=== PATIENT | female | born 1970 | race Caucasian/White ===

== ENCOUNTER 2017-03-28 17:25 | Inpatient (IN) ==
[2017-03-28 18:42] LABS: Basophils % 0.4 %; Eosinophils # 0.2 K/mcL (0.0-0.6); Eosinophils % 2.1 %; Hemoglobin 12.3 g/dL (11.5-15.4); Immature Granulocytes % 0.8 % (0-4); Lymphocytes # 2.1 K/mcL (0.6-4.6); Mean Corpuscular HGB Conc 34.2 g/dL (31.6-35.5); Mean Corpuscular Hemoglobin 28.1 pg (28.0-33.3); Mean Corpuscular Volume 82.4 fL (83.0-100.0); Mean Platelet Volume 11.3 fL (9.4-12.4); Monocytes # 0.7 K/mcL (0.0-1.3); Monocytes % 8.9 %; Neutrophils # 4.7 K/mcL (1.6-8.9); Platelet Count 184 K/mcL (140-400); Red Blood Count 4.37 M/mcL (3.82-4.97); Red Cell Distribution Width 13.2 % (11.5-14.5); Segmented Neutrophils % 60.8 %
[2017-03-28 18:58] LABS: BUN/Creatinine Ratio 11 (6-26); Blood Urea Nitrogen 9 mg/dL (7-20); Calcium 9.2 mg/dL (8.6-10.8); Carbon Dioxide 25 mEq/L (19-29); Chloride 103 mEq/L (98-109); Glucose 106 mg/dL (70-99); Magnesium 1.7 mg/dL (1.6-2.6); Osmolality,Calculated 277 (280-300); Phosphorous 3.4 mg/dL (2.3-4.7); Sodium 134 mEq/L (136-145); eGFR For African Americans > 60 (> 60); eGFR For Non-African Americans > 60 (> 60)
[2017-03-28] MEDS ORDERED: 0.9 % Sodium Chloride 1,000 ML IVC ONE (19:34)
[2017-03-28] MEDS ORDERED: *HR* HYDROmorphone (PF) 1 MG/ML SYRINGE IVP ONE (19:36)
--- NOTE | 2017-03-28 20:04 | Emergency Department Note ---
Disposition Clinical Impression: Cellulitis Qualifiers: Site of cellulitis: extremity Site of cellulitis of extremity: lower extremity Laterality: left Qualified Code(s): L03.116 - Cellulitis of left lower limb Disposition: Admitted As Inpatient Condition: Good Referrals: NO,PCP [Non-Partnered Physician] - Forms: ED Satisfaction Letter Time of Disposition: 20:55 General Adult HPI - General Chief complaint: ED Skin/Abscess/Foreign Body Stated complaint: post op poss infection left knee Time Seen by Provider: 03/28/17 17:44 Source: patient Mode of arrival: ambulatory Limitations: no limitations Nursing Notes Reviewed: Yes Vital Signs Reviewed: Yes - History of Present Illness HPI Narrative: Patient is a 46-year-old female that presents the emergency department with left knee pain. She states that she had a left knee scope on March 15 and her sutures were removed on March 22 and that is when she noticed a small spot of redness. She states that there has been increased erythema and swelling over the past couple of days. She states that yesterday she got up and it was difficult to walk and that her knee joint felt stuck. She went in to see Dr. Abreu and states that she had a needle aspiration of the left knee which only showed blood was not sent off for analysis. She states that today she went in to have a Doppler of her left leg which she reports to be negative for any sort of blood clot. Patient states that the pain is about a 10 out of 10 and feels like someone has hit her with a sledge hammer in the knee. She was prescribed ibuprofen, [place], and Bactrim which she has taken 3 doses of. Patient says that she has been having fever and chills. She denies any chest pain, shortness of breath, abdominal pain, or any urinary symptoms. Pain Scale: 10 - Related Data Home Medications Medication Instructions Recorded Confirmed Bupropion HCl [Wellbutrin Xl] 300 mg PO DAILY 03/15/17 03/15/17 Divalproex (24 HR) [Depakote ER 250 mg PO TID 03/15/17 03/15/17 (24 HR)] Estrogens, Conjugated [Premarin] 0.9 mg PO DAILY 03/15/17 03/15/17 FLUoxetine HCl [Fluoxetine HCl] 40 mg PO BID 03/15/17 03/15/17 HYDROcodone/Acet 5/325 mg [[place] 1 tab PO Q6H PRN 03/15/17 03/15/17 5-325 mg] Lansoprazole [Prevacid] 30 mg PO DAILY 03/15/17 03/15/17 Lisinopril [Zestril] 20 mg PO DAILY 03/15/17 03/15/17 Tizanidine HCl 4 mg PO Q8H PRN 03/15/17 03/15/17 hydrOXYzine pamoate [Hydroxyzine 25 mg PO Q4-6H PRN 03/15/17 03/15/17 Pamoate] Previous Rx's Medication Instructions Recorded Butalb/Acetaminophen/Caffeine 1 each PO Q4-6H PRN #12 capsule 06/02/15 [Fioricet 50-300-40 mg Capsule] Clindamycin [Cleocin] 150 mg PO Q6HR #7 capsule 03/15/17 Ibuprofen [Motrin] 800 mg PO Q8HR #30 tablet 03/15/17 Allergies Allergy/AdvReac Type Severity Reaction Status Date / Time morphine AdvReac Vomiting Verified 03/15/17 10:25 sumatriptan [From Imitrex] AdvReac Difficulty Verified 03/15/17 10:25 Breathing All systems ED: reviewed and negative except as stated. Constitutional: Reports: fever, chills Cardiovascular: Denies: chest pain Respiratory: Denies: dyspnea Gastrointestinal: Denies: abdominal pain, nausea, vomiting Genitourinary: Denies: dysuria Musculoskeletal: Reports: joint swelling, other (swelling in left lower extremity) Integumentary: Reports: other (Redness of left lower extremity) Past Medical History - Past Medical History Attestation: Yes The following information was validated with the patient. Medical history: Reports: GERD, hypertension, migraine Surgical history: Reports: , hysterectomy, orthopedic, other, other Psychiatric history: Reports: bipolar, depression TALENT SCOUT history: Reports: other - Social History Smoking Status: Current every day smoker Smokeless Tobacco Status: No Alcohol use: Reports: none Drug use: Reports: none Physical Exam - General Limitations: no limitations General appearance: alert - Head Head exam: atraumatic, normocephalic - Neck Neck exam: Present: normal inspection, full ROM, trachea midline - Chest Chest inspection: Present: symmetric chest wall rise - Respiratory Respiratory exam: Present: normal lung sounds bilaterally, respiratory distress. Absent: wheezes - Cardiovascular Cardiovascular exam: Present: regular rate, normal rhythm, normal heart sounds, +S1, +S2 - Abdominal Exam Abdominal exam: Present: soft, Non-Tender, normal bowel sounds - Expanded Lower Extremity Exam Knee exam: Present: tenderness (Left leg), swelling, erythema, other (Pain with flexion, only able to flex about 15 degrees) Lower leg exam: Present: tenderness (Left leg), swelling, erythema - Neurological Exam Neurological exam: Present: alert, oriented X3, CN II-XII intact - Psychiatric Psychiatric exam: Present: normal affect, normal mood - Skin Skin exam: Present: warm, dry, intact, erythema Course Vital Signs Temperature 99.9 F H 03/28/17 17:37 Pulse Rate 104 03/28/17 17:37 Respiratory Rate 20 03/28/17 17:37 Blood Pressure 144/72 03/28/17 17:37 O2 Sat by Pulse Oximetry 96 03/28/17 17:37 Temperature 99.9 F H 03/28/17 17:37 Pulse Rate 104 03/28/17 17:37 Respiratory Rate 20 03/28/17 17:37 Blood Pressure 144/72 03/28/17 17:37 O2 Sat by Pulse Oximetry 96 03/28/17 17:37 Oxygen Delivery Oxygen Delivery Room Air Medical Decision Making - MDM Narrative Medical decision making narrative: The patient is a 46-year-old female that presents to the emergency department with left knee pain and erythema. His last visit she had a left knee scope. Patient states that yesterday she had a knee tap which just showed blood in it. She also reports that today she called and talked with Dr. Abreu and then went and had a Doppler of her left leg which was reported to her as negative for blood clot. After talking with Dr. Abreu further he recommended that she come to the emergency department. Patient has been on Bactrim and has taken 3 doses. I will talk to Dr. Abreu and discuss the patient's care. Due to the knees continued swelling and erythema is likely that the patient will be admitted for IV antibiotics. I spoke the hospitalist and he has accepted the patient to their service. I also spoke with Dr. Abreu and updated him on his patient's condition and he states that he is okay with her being admitted to the hospital and states that if she is admitted tomorrow he will be able to follow-up with her on in the clinic. - Lab Data Lab results reviewed: Yes I reviewed the patient's lab results. Result diagrams: 03/28/17 18:29 03/28/17 18:29 Lab Results 03/28/17 03/28/17 03/28/17 Range/Units 18:29 18:29 18:29 WBC 7.7 (4.3-11.1) K/mcL RBC 4.37 (3.82-4.97) M/mcL Hgb 12.3 (11.5-15.4) g/dL Hct 36.0 (35.3-44.9) % MCV 82.4 L (83.0-100.0) fL MCH 28.1 (28.0-33.3) pg MCHC 34.2 (31.6-35.5) g/dL RDW 13.2 (11.5-14.5) % Plt Count 184 (140-400) K/mcL MPV 11.3 (9.4-12.4) fL Immature Gran % 0.8 (0-4) % Seg Neutrophils % 60.8 % Lymphocytes % 27.0 % Monocytes % 8.9 % Eosinophils % 2.1 % Basophils % 0.4 % Neutrophils # 4.7 (1.6-8.9) K/mcL Lymphocytes # 2.1 (0.6-4.6) K/mcL Monocytes # 0.7 (0.0-1.3) K/mcL Eosinophils # 0.2 (0.0-0.6) K/mcL Basophils # 0.0 (0.0-0.2) K/mcL Sodium 134 L (136-145) mEq/L Potassium 4.0 (3.5-4.5) mEq/L Chloride 103 (98-109) mEq/L Carbon Dioxide 25 (19-29) mEq/L BUN 9 (7-20) mg/dL Creatinine 0.79 (0.57-1.11) mg/dL Est GFR ( Amer) > 60 (> 60) Est GFR (Non-Af Amer) > 60 (> 60) BUN/Creatinine Ratio 11 (6-26) Glucose 106 H (70-99) mg/dL Calculated Osmolality 277 L (280-300) Lactic Acid 1.6 (0.5-2.2) mmol/L Calcium 9.2 (8.6-10.8) mg/dL Phosphorus 3.4 (2.3-4.7) mg/dL Magnesium 1.7 (1.6-2.6) mg/dL Urine Color (Yellow) Urine Clarity (Clear) Urine pH (5.0-8.0) pH Units Ur Specific Sharon (1.010-1.025) Urine Protein (Neg-Trace) mg/dL Urine Glucose (UA) (Normal) mg/dL Urine Ketones (Negative) mg/dL Urine Blood (Negative) Urine Nitrite (Negative) Urine Bilirubin (Negative) Urine Urobilinogen (Normal) mg/dL Ur Leukocyte Esterase (Negative) Urine Microscopic RBC (0-3) per hpf Urine Microscopic WBC (0-3) per hpf Ur Squamous Epith Cells (None-Few) per lpf Urine Bacteria (None-Few) per hpf Hyaline Casts (None-Few) per lpf Ur Culture Indicated? (NO) 03/28/17 Range/Units 19:38 WBC (4.3-11.1) K/mcL RBC (3.82-4.97) M/mcL Hgb (11.5-15.4) g/dL Hct (35.3-44.9) % MCV (83.0-100.0) fL MCH (28.0-33.3) pg MCHC (31.6-35.5) g/dL RDW (11.5-14.5) % Plt Count (140-400) K/mcL MPV (9.4-12.4) fL Immature Gran % (0-4) % Seg Neutrophils % % Lymphocytes % % Monocytes % % Eosinophils % % Basophils % % Neutrophils # (1.6-8.9) K/mcL Lymphocytes # (0.6-4.6) K/mcL Monocytes # (0.0-1.3) K/mcL Eosinophils # (0.0-0.6) K/mcL Basophils # (0.0-0.2) K/mcL Sodium (136-145) mEq/L Potassium (3.5-4.5) mEq/L Chloride (98-109) mEq/L Carbon Dioxide (19-29) mEq/L BUN (7-20) mg/dL Creatinine (0.57-1.11) mg/dL Est GFR ( Amer) (> 60) Est GFR (Non-Af Amer) (> 60) BUN/Creatinine Ratio (6-26) Glucose (70-99) mg/dL Calculated Osmolality (280-300) Lactic Acid (0.5-2.2) mmol/L Calcium (8.6-10.8) mg/dL Phosphorus (2.3-4.7) mg/dL Magnesium (1.6-2.6) mg/dL Urine Color Yellow (Yellow) Urine Clarity Cloudy A (Clear) Urine pH 6.0 (5.0-8.0) pH Units Ur Specific Sharon 1.015 (1.010-1.025) Urine Protein Negative (Neg-Trace) mg/dL Urine Glucose (UA) Normal (Normal) mg/dL Urine Ketones Negative (Negative) mg/dL Urine Blood Negative (Negative) Urine Nitrite Negative (Negative) Urine Bilirubin Negative (Negative) Urine Urobilinogen Normal (Normal) mg/dL Ur Leukocyte Esterase Moderate H (Negative) Urine Microscopic RBC 5-15 H (0-3) per hpf Urine Microscopic WBC 15-30 H (0-3) per hpf Ur Squamous Epith Cells Many H (None-Few) per lpf Urine Bacteria Few (None-Few) per hpf Hyaline Casts None Seen (None-Few) per lpf Ur Culture Indicated? YES A (NO) - Radiology Data Radiology results reviewed: Yes I reviewed the patient's radiology results. Knee X-Ray 03/28/17 17:45 IMPRESSION: 1. No acute osseous abnormality the left knee evident. 2. Small joint effusion. D/ / Faheem Glass MD / Faheem Glass MD Interpreting Provider: Faheem Glass MD Attestation Statement - Attestation Attestation: I, Jan Boudreaux MD, personally evaluated this patient and discussed their management with the resident physician. I reviewed the resident's note and agree with the documented findings, medical decision making, and plan of care. 46-year-old female presents to the emergency department with a complaint of increasing left knee pain and swelling and redness. Patient had a left scope done on 03/15. She had sutures removed on 03/22 and noticed some redness noted the incision at that time. The redness is gotten progressively worse and pain is gotten worse. She [facility] and they attempted to aspirate the knee. She was placed on Bactrim and had 2 doses of Bactrim yesterday and 1 dose today. She called today because the symptoms were worse and they ordered an outpatient Doppler which was negative for DVT. She was advised by the nurse to come here. She has had subjective fever today. On examination patient is a well-developed well-nourished female in no acute distress. She is alert and oriented 3. There is no cyanosis or diaphoresis. Breath sounds are clear and equal bilaterally. Heart regular rate and rhythm. Abdomen is soft and nontender with normal bowel sounds. There is moderate erythema over the anterior aspect of the left knee with some diffuse swelling and warmth to touch. Marked tenderness to palpation. Range of motion is decreased secondary to pain and swelling however she can fully extend the knee partially flexed the knee. There is normal neurovascular function distally. Labs reviewed. X-ray showed a small effusion. Blood cultures obtained. Patient was started on IV vancomycin. Dr. Taylor discussed with the orthopedist continuous vulcanizing machine operator, Dr. Cyr, and also with Dr. Abreu who saw the patient yesterday. The hospitalist, Dr. Estevez, was consulted and accepted admission of the patient.
[2017-03-28 20:12] LABS: Bilirubin,Urine Negative (Negative); Blood,Urine Negative (Negative); Clarity,Urine Cloudy (Clear); Color,Urine Yellow (Yellow); Glucose,Urine (UA) Normal (Normal); Ketones,Urine Negative (Negative); Leukocyte Esterase,Urine Moderate (Negative); Nitrite,Urine Negative (Negative); Protein,Urine Negative (Neg-Trace); Specific Gravity,Urine 1.015 (1.010-1.025); Urobilinogen,Urine Normal (Normal)
[2017-03-28] MEDS ORDERED: Ondansetron 4 MG/2 ML VIAL IVP ONE (20:13)
[2017-03-28 20:16] LABS: Bacteria,Urine Few per hpf (None-Few); Hyaline Casts,Urine None Seen per lpf (None-Few); Squamous Epithelial Cell,Urine Many per lpf (None-Few); WBC,Urine 15-30 per hpf (0-3)
[2017-03-28] MEDS ORDERED: Ondansetron 4 MG/2 ML VIAL ONE (20:16)
[2017-03-28] MEDS ORDERED: Vancomycin 1,000 MG in D5% in Water 250 ML IVPB ONE (20:41)
[2017-03-28] MEDS ORDERED: Ketorolac 15 MG/ML VIAL IVP ONE (20:45)
[2017-03-28] MEDS ORDERED: Ondansetron 4 MG/2 ML VIAL IVP PRN (21:29)
[2017-03-28] MEDS ORDERED: Naloxone 0.4 MG/ML INJ IVP PRN (21:29)
[2017-03-28 21:44] LABS: Prothrombin Time 10.8 Seconds (9.4-12.1)
--- NOTE | 2017-03-28 22:50 | Internal Med History&Physical ---
Date of Encounter: 03/28/17 Time of Encounter: 22:35 Assessment and Plan (1) Cellulitis Current visit: Yes Status: Acute Acute cellulitis of left lower leg Continue IV antibiotics, IV fluids Cultures pending Ultrasound Doppler done at outside facility today - negative for DVT Urinalysis positive for leukocyte esterase Chest x-ray - no acute process Labs in a.m. Qualifiers: Site of cellulitis: extremity Site of cellulitis of extremity: lower extremity Laterality: left Qualified Code(s): L03.116 - Cellulitis of left lower limb (2) Swelling of left knee joint Current visit: Yes Status: Acute Acute swelling left knee joint - possible septic arthritis - recent left knee arthroscopy Continue IV ceftazidime and IV Vancomycin Cultures pending May need synovial fluid analysis Orthopedics consult - ED physician discussed with Dr. Cyr (3) Essential hypertension Current visit: Yes Status: Chronic Essential hypertension, controlled, continue home meds, monitor (4) GERD (gastroesophageal reflux disease) Current visit: Yes Status: Chronic Chronic, continue Prilosec Qualifiers: Esophagitis presence: without esophagitis Qualified Code(s): K21.9 - Gastro -esophageal reflux disease without esophagitis (5) DVT prophylaxis Current visit: Yes Status: Acute Continue heparin subcutaneous Internal Medicine - H&P: HPI Chief complaint: Left knee pain Admitted From: Emergency Dept Plans for Post Hospital Care: Home History of present illness: Ms. Man is a 46 year old female with past medical history hypertension, migraine headaches, depression and GERD. Patient presents to the ED with complaints of left knee pain and swelling. On examination patient is awake and alert. Not in any distress. Able to provide history. Patient states she had a left knee arthroscopy done on March [address] Abreu. She had her sutures removed on March 22. Patient states she had minimal left knee pain at that time. She initially noticed a small spot of redness. Patient states there is been increasing swelling over the past few days, but yesterday her pain was severe. Patient states she was unable to bear weight on left leg and also had difficulty in flexing her knee. Pain was worse with movement and weightbearing. Rates at 9 out of 10. Not radiating. Mainly located around the left knee. Patient states redness seems to be spreading down her left lower leg. Relieved with pain medication and rest. She also complains of subjective fever for the past 24 hours. No other associated symptoms. Patient initially followed up with Dr. Abreu on Monday , and she was prescribed Bactrim and ibuprofen initially. Patient states pain and swelling got worse today and she went to a urgent care. Ultrasound Doppler of the lower extremities was done, and patient states there was no evidence of DVT. Initial evaluation in the ED reveals small joint effusion in the left knee but otherwise no acute abnormality. Patient also has a UTI. Patient is being admitted for cellulitis and left knee swelling and redness. She will be on IV antibiotics and pain medications. Cultures are pending. Patient has been explained about her condition and plan of care. Understood and agreed. No family members at bedside. CODE STATUS full code. Past Med Surg Social Fam HX - Past Medical History Medical history: GERD, hypertension, migraine Psychiatric history: bipolar, depression - Past Surgical History Surgical History: , hysterectomy, orthopedic, other, other - Social History Smoking Status: Current every day smoker Smokeless Tobacco Status: No Alcohol use: none Drug use: none Internal Medicine - H&P: Meds Bupropion HCl [Wellbutrin Xl] 300 mg PO DAILY 03/15/17 [History] Divalproex (24 HR) [Depakote ER (24 HR)] 1,000 mg PO HS 03/15/17 [History] Estrogens, Conjugated [Premarin] 0.9 mg PO DAILY 03/15/17 [History] FLUoxetine HCl [Fluoxetine HCl] 40 mg PO BID 03/15/17 [History] HYDROcodone/Acet 5/325 mg [Agra 5-325 mg] 1 tab PO Q6H PRN 03/15/17 [History] Lansoprazole [Prevacid] 30 mg PO DAILY 03/15/17 [History] Lisinopril [Zestril] 20 mg PO DAILY 03/15/17 [History] Tizanidine HCl 4 mg PO Q8H PRN 03/15/17 [History] hydrOXYzine pamoate [Hydroxyzine Pamoate] 25 mg PO QID PRN 03/15/17 [History] Butalb/Acetaminophen/Caffeine [Fioricet 50-300-40 mg Capsule] 1 each PO Q4-6H PRN 03/28/17 [History] SUMAtriptan succinate [Imitrex] 50 mg PO Q2H PRN MDD 100 mg 03/28/17 [History] Sulfamethoxazole/Trimeth DS [Bactrim DS] 1 each PO BID 03/28/17 [History] Allergies morphine Adverse Reaction (Verified 03/15/17 10:25) Vomiting All Systems PM: A 10-system review of systems was performed and is negative for pertinent findings except as documented above in the HPI. - Constitutional Constitutional: fever(s), weakness - EENT Eyes: no blurry vision - Cardiovascular Cardiovascular ROS IM: no chest pain, no diaphoresis, no dyspnea, no dyspnea on exertion, no orthopnea, no syncope - Respiratory Respiratory: no cough, no dyspnea on exertion, no wheezing, no chest congestion - Gastrointestinal Gastrointestinal: no abdominal pain, no bloating, no diarrhea, no nausea, no vomiting - Genitourinary Genitourinary: no dysuria - Neurological Neurological ROS: no abnormal gait, no dizziness, no numbness - Constitutional Vitals: Temp Pulse Resp BP Pulse Ox 99.3 F 88 16 141/80 96 03/28/17 22:03 03/28/17 22:03 03/28/17 22:03 03/28/17 22:03 03/28/17 22:03 General appearance: Present: A&O X 3, pleasant, no acute distress, answers questions appropriately - Head Head exam: Present: atraumatic - ENT ENT exam: Present: mucous membranes moist - Neck Neck exam general surgery: Present: supple - Respiratory Respiratory exam: Present: CTAB. Absent: rales, rhonchi, wheezes, tachypnea - Cardiovascular Cardiovascular exam: Present: RRR, +S1, +S2 - GI/Abdominal GI/Abdominal exam: Present: soft, no peritoneal signs. Absent: distended, guarding, rigid, tenderness - Extremities Exam Extremities exam: Present: radial pulses palpable and symetrical. Absent: cyanotic, pedal edema Additional comments: Left knee swelling and erythema +, erythema is spreading to left lower leg, tenderness ++ over left knee, no discharge - Neurological Exam Neurological exam: Present: alert, oriented X3, no focal deficits Internal Med - H&P Results - Labs CBC & Chem 7: 03/28/17 18:29 03/28/17 18:29 - Impressions ITS Impressions Chest X-Ray 03/28/17 21:32 IMPRESSION: No acute process. D/ / Jose E Albert MD / Jose E Albert MD Interpreting Provider: Jose E Albert MD
[2017-03-28] MEDS: *HR* Heparin 5,000 UNIT/ML VIAL SQ SCH (23:08)
[2017-03-28] MEDS: *HR* HYDROcodone/Acet 5/325 mg TABLET PO PRN (23:08)
[2017-03-28] MEDS: 0.9 % Sodium Chloride 1,000 ML IVC SCH (23:46)
[2017-03-28] MEDS: Divalproex (24 HR) 500 MG TABLET PO SCH (23:47)
[2017-03-29] MEDS ORDERED: FLUoxetine 20 MG CAPSULE PO ONE (00:26)
[2017-03-29] MEDS: hydrOXYzine pamoate 25 MG CAPSULE PO PRN ×2 (01:11→20:49)
[2017-03-29] MEDS: tiZANidine 4 MG TABLET PO PRN ×3 (01:13→20:45)
[2017-03-29] MEDS: *HR* HYDROcodone/Acet 5/325 mg TABLET PO PRN ×3 (05:24→18:25)
[2017-03-29] MEDS: *HR* Heparin 5,000 UNIT/ML VIAL SQ SCH ×3 (05:47→22:35)
[2017-03-29 07:37] LABS: Basophils % 0.3 %; Eosinophils # 0.1 K/mcL (0.0-0.6); Eosinophils % 2.3 %; Hematocrit 31.8 % (35.3-44.9); Hemoglobin 10.8 g/dL (11.5-15.4); Immature Granulocytes % 0.9 % (0-4); Lymphocytes # 2.2 K/mcL (0.6-4.6); Lymphocytes % 37.5 %; Mean Corpuscular Hemoglobin 28.3 pg (28.0-33.3); Mean Corpuscular Volume 83.5 fL (83.0-100.0); Mean Platelet Volume 12.1 fL (9.4-12.4); Monocytes # 0.8 K/mcL (0.0-1.3); Monocytes % 13.2 %; Neutrophils # 2.6 K/mcL (1.6-8.9); Platelet Count 149 K/mcL (140-400); Red Blood Count 3.81 M/mcL (3.82-4.97); Red Cell Distribution Width 13.5 % (11.5-14.5); Segmented Neutrophils % 45.8 %
[2017-03-29 08:01] LABS: BUN/Creatinine Ratio 15 (6-26); Blood Urea Nitrogen 12 mg/dL (7-20); Calcium 8.3 mg/dL (8.6-10.8); Carbon Dioxide 24 mEq/L (19-29); Chloride 107 mEq/L (98-109); Glucose 90 mg/dL (70-99); Osmolality,Calculated 283 (280-300); Potassium 4.4 mEq/L (3.5-4.5); Sodium 137 mEq/L (136-145); eGFR For African Americans > 60 (> 60); eGFR For Non-African Americans > 60 (> 60)
[2017-03-29] MEDS: BuPROPion XL (24 HR) 150 MG TABLET PO SCH (09:00)
[2017-03-29] MEDS: Lisinopril 20 MG TABLET PO SCH (09:00)
[2017-03-29] MEDS: FLUoxetine 20 MG CAPSULE PO SCH ×2 (09:00→20:45)
[2017-03-29] MEDS: Vancomycin 1,250 MG in D5% in Water 250 ML IVPB SCH ×2 (10:07→20:46)
[2017-03-29] MEDS: Ibuprofen 400 MG TABLET PO PRN ×2 (11:29→20:49)
[2017-03-29] MEDS ORDERED: Prochlorperazine 10 MG/2 ML VIAL IVP ONE (11:37)
[2017-03-29] MEDS: 0.9 % Sodium Chloride 1,000 ML IVC SCH (12:12)
--- NOTE | 2017-03-29 15:36 | Internal Med Progress Note ---
<LucasmiltonAgustin toney - Last Filed: 03/29/17 15:31> Date of Encounter: 03/29/17 Time of Encounter: 15:31 - Assessment and plan (1) Cellulitis Current Visit: Yes Status: Acute Assessment and plan: - Acute cellulitis of left lower extremity. Possible septic arthritis. - Will continue day 2 of vancomycin and plan on PICC placement. d/c ceftazadine - Failed outpatient bactrim before presentation. Qualifiers: Site of cellulitis: extremity Site of cellulitis of extremity: lower extremity Laterality: left Qualified Code(s): L03.116 - Cellulitis of left lower limb (2) Essential hypertension Current Visit: Yes Status: Chronic Assessment and plan: Well controlled at 125/75. - Continue home meds (3) GERD (gastroesophageal reflux disease) Current Visit: Yes Status: Chronic Assessment and plan: - Stable - Continue home prilosec. Qualifiers: Esophagitis presence: without esophagitis Qualified Code(s): K21.9 - Gastro -esophageal reflux disease without esophagitis (4) Migraine Current Visit: Yes Status: Acute Assessment and plan: Hx of chronic migraines, acute episode - received Benadryl, Reglan, Motrin without relief. - will give toradol 30 mg q6 PRN pain Qualifiers: Migraine type: without aura Status migrainosus presence: without status migrainosus Intractability: not intractable Qualified Code(s): G43.009 - Migraine without aura, not intractable, without status migrainosus (5) DVT prophylaxis Current Visit: Yes Status: Acute Assessment and plan: - heparin 5000 units - Time Spent With Patient 25 - 35 minutes - Subjective Interval history: Ms. Man was seen and examined at bedside this afternoon. She states that she continues to have some pain in her LLE. She states the warmth, erythema have improved a lot since admission. She denies any further fevers or chills. She is able to flex her knee to 90 degrees. Her only complaint at this time is a migraine. - Constitutional Vitals: Temp Pulse Resp BP Pulse Ox 98.2 F 94 16 125/75 97 03/29/17 11:30 03/29/17 11:30 03/29/17 11:30 03/29/17 11:30 03/29/17 11:30 General appearance: Present: A&O X 3, pleasant, no acute distress, answers questions appropriately Exam: Gen.: Vitals noted. No acute distress. AAOx3 HEENT: PERRL/EOMI, oropharynx clear, Normocephalic, atraumatic Neck: Supple. No adenopathy. Cardiac: RRR, no murmur, +S1/S2 Pulmonary: CTA bilaterally, no wheezes, rales or rhonchi, equal chest expansion Abdomen: soft, nontender, BS noted, no guarding Back: Nontender throughout. MSK: ROM intact, hesitant on flexion of left knee. no joint swelling noted Extremities: LLE has 2 well healing incisions with erythema and localized swelling. Improved from previous pen lorena. Mild effusion. Tender to palpation. no BLE edema, nontender calf, no cyanosis or clubbing Neuro: A&Ox3, moves all extremities, no focal deficits Psych: Appropriate mood and behavior Internal Medicine: Result - Labs CBC & Chem 7: 03/29/17 06:28 03/29/17 06:28 Labs: Short CBC 03/29/17 Range/Units 06:28 WBC 5.7 (4.3-11.1) K/mcL Hgb 10.8 L D (11.5-15.4) g/dL Hct 31.8 L (35.3-44.9) % Plt Count 149 (140-400) K/mcL Neutrophils # 2.6 (1.6-8.9) K/mcL BMP 03/29/17 06:28 Sodium 137 Potassium 4.4 Chloride 107 Carbon Dioxide 24 BUN 12 Creatinine 0.79 Glucose 90 Calcium 8.3 L - ABG Interpretation ABG results: PT/INR, D-dimer PT 10.8 Seconds (9.4-12.1) 03/28/17 18:29 Consult Discharge Plan - Plan Referrals: Wade Saldaña DO [Primary Care Provider] - <Ace Rogers - Last Filed: 03/29/17 15:45> Date of Encounter: 03/29/17 - Constitutional Vitals: Temp Pulse Resp BP Pulse Ox 98.2 F 94 16 125/75 97 03/29/17 11:30 03/29/17 11:30 03/29/17 11:30 03/29/17 11:30 03/29/17 11:30 Internal Medicine: Result - Labs CBC & Chem 7: 03/29/17 06:28 03/29/17 06:28 Labs: Short CBC 03/29/17 Range/Units 06:28 WBC 5.7 (4.3-11.1) K/mcL Hgb 10.8 L D (11.5-15.4) g/dL Hct 31.8 L (35.3-44.9) % Plt Count 149 (140-400) K/mcL Neutrophils # 2.6 (1.6-8.9) K/mcL BMP 03/29/17 06:28 Sodium 137 Potassium 4.4 Chloride 107 Carbon Dioxide 24 BUN 12 Creatinine 0.79 Glucose 90 Calcium 8.3 L - ABG Interpretation ABG results: PT/INR, D-dimer PT 10.8 Seconds (9.4-12.1) 03/28/17 18:29 - Attending Attestation Discontinue ceftazidime continue IV vancomycin I examined this patient and my medical decision-making was reviewed with the Resident Physician. I agree with the documented findings, disposition and treatment plan as described except to the extent set forth below.
[2017-03-29] MEDS: Ketorolac 30 MG/ML VIAL IVP PRN (17:12)
--- NOTE | 2017-03-29 17:45 | Orthopedic Consult Note ---
Date of Encounter: 03/29/17 Time of Encounter: 17:00 Assessment and Plan (1) Cellulitis Current Visit: Yes Status: Acute Discussed case with patient, Dr. Cyr, Dr. Arreaga, and Dr. Abreu regarding past events and current plan. No surgical intervention planned at this time as clinically patient appears to have superficial cellulitis responding well to current antibiotic therapy. Discontinue NPO order. Spoke with nurse who will aide patient in getting meal ordered for this evening. From surgical standpoint , appropriate to discharge on antibiotics per hospitalist recommendation. Patient to follow up in outpatient setting for continued monitoring of knee and incision sites. Patient has previously scheduled follow up with Dr. Abreu for 04/03 - will plan to keep this appt. Patient expressed agreement with this plan. Dr. Arreaga planning to see patient this evening while inpatient. Discussed the above with Dr. Hanley. Thank you for this consultation. Qualifiers: Site of cellulitis: extremity Site of cellulitis of extremity: lower extremity Laterality: left Qualified Code(s): L03.116 - Cellulitis of left lower limb History of Present Illness Chief complaint: knee cellulitis HPI: Ms. Man is a 46 year old female well known to [facility]. On 03/15/17 she had a diagnostic left knee arthroscopy with Dr. Arreaga which revealed normal cartilage in all compartments, no tear of the lateral meniscus or the medial meniscus and ACL and PCL were without pathology. Patient developed pain, redness and irritation around the incision sites 2-3 days ago. Patient was seen by Dr. Abreu sports med on 03/27, had aspiration attempted which revealed no aspiratable fluid and diagnosed with superficial cellulitis near the incision sites and placed on Bactrim. Patient had stat doppler yesterday revealing no dvt. Patient in significant pain and concerned re: redness and swelling and spoke with nurse triage who advised patient to go to ER. Patient went to ER, was admitted to hospitalist, and ortho was consulted. On exam, patient laying in bed with lights off - patient states has a migraine. Nurse at bedside - Toradol being administered for said migraine. Patient's left knee examined revealing erythema appx 1cm diameter surrounding anterolateral portal incision with no induration, drainage, or fluctuance noted. Mildly tender to palpation. Proximal medial portal incision appears to have gapped, scab noted, no erythema, induration, or tenderness noted on palpation - patient states the steri-strips placed at POW#1 visit fell of only a day or two after appt. Per patient, she did not contact office regarding this. Lateral calf tender to palpation however no erythema, induration, or edema noted to this region. No joint effusion noted. Motion intact to appx 100 degrees flexion, full extension. Normal strength. Neurovascularly intact. Discussed case with patient, Dr. Cyr, Dr. Arreaga, and Dr. Abreu regarding past events and current plan. No surgical intervention planned at this time as clinically patient appears to have superficial cellulitis responding well to current antibiotic therapy. Discontinue NPO order. Spoke with nurse who will aide patient in getting meal ordered for this evening. From surgical standpoint , appropriate to discharge on antibiotics per hospitalist recommendation. Patient to follow up in outpatient setting for continued monitoring of knee and incision sites. Patient has previously scheduled follow up with Dr. Abreu for 04/03 - will plan to keep this appt. Patient expressed agreement with this plan. Dr. Arreaga planning to see patient this evening while inpatient. Thank you for this consultation. Past Med Surg Social Fam HX - Past Medical History Medical history: GERD, hypertension, migraine Psychiatric history: bipolar, depression - Past Surgical History Surgical History: , hysterectomy, orthopedic, other, other - Social History Smoking Status: Current every day smoker Smokeless Tobacco Status: No Alcohol use: none Drug use: none Medications and Allergies Bupropion HCl [Wellbutrin Xl] 300 mg PO DAILY 03/15/17 [History] Divalproex (24 HR) [Depakote ER (24 HR)] 1,000 mg PO HS 03/15/17 [History] Estrogens, Conjugated [Premarin] 0.9 mg PO DAILY 03/15/17 [History] FLUoxetine HCl [Fluoxetine HCl] 40 mg PO BID 03/15/17 [History] HYDROcodone/Acet 5/325 mg [[place] 5-325 mg] 1 tab PO Q6H PRN 03/15/17 [History] Lansoprazole [Prevacid] 30 mg PO DAILY 03/15/17 [History] Lisinopril [Zestril] 20 mg PO DAILY 03/15/17 [History] Tizanidine HCl 4 mg PO Q8H PRN 03/15/17 [History] hydrOXYzine pamoate [Hydroxyzine Pamoate] 25 mg PO QID PRN 03/15/17 [History] Butalb/Acetaminophen/Caffeine [Fioricet 50-300-40 mg Capsule] 1 each PO Q4-6H PRN 03/28/17 [History] SUMAtriptan succinate [Imitrex] 50 mg PO Q2H PRN MDD 100 mg 03/28/17 [History] Sulfamethoxazole/Trimeth DS [Bactrim DS] 1 each PO BID 03/28/17 [History] Allergies morphine Adverse Reaction (Verified 03/15/17 10:25) Vomiting All Systems Reviewed: A 10-system review of systems was performed and is negative for pertinent findings except as documented above in the HPI. Physical Exam - Constitutional Vitals: Temp Pulse Resp BP Pulse Ox 98.2 F 94 16 125/75 97 03/29/17 11:30 03/29/17 11:30 03/29/17 11:30 03/29/17 11:30 03/29/17 11:30 Results - Labs Result Diagrams: 03/29/17 06:28 03/29/17 06:28 Labs: Abnormal lab results RBC 3.81 M/mcL (3.82-4.97) L 03/29/17 06:28 Hgb 10.8 g/dL (11.5-15.4) L D 03/29/17 06:28 Hct 31.8 % (35.3-44.9) L 03/29/17 06:28 POC Glucose 101 (58-89) H 03/29/17 05:22 Calcium 8.3 mg/dL (8.6-10.8) L 03/29/17 06:28 Urine Clarity Cloudy (Clear) A 03/28/17 19:38 Ur Leukocyte Esterase Moderate (Negative) H 03/28/17 19:38 Urine Microscopic RBC 5-15 per hpf (0-3) H 03/28/17 19:38 Urine Microscopic WBC 15-30 per hpf (0-3) H 03/28/17 19:38 Ur Squamous Epith Cells Many per lpf (None-Few) H 03/28/17 19:38 Ur Culture Indicated? YES (NO) A 03/28/17 19:38 H & H 03/29/17 Range/Units 06:28 Hgb 10.8 L D (11.5-15.4) g/dL Hct 31.8 L (35.3-44.9) % All other labs normal. Consult Discharge Plan - Plan Referrals: Wade Saldaña DO [Primary Care Provider] -
--- NOTE | 2017-03-29 18:43 | Orthopedics Progress Note ---
Date of Encounter: 03/29/17 Time of Encounter: 18:41 Subjective Interval history: Patient seen this evening admitted last night with increased pain and swelling in the left knee. Patient is status post left knee arthroscopy diagnostic with 2 portals. Patient's surgery on March 15. Began having problems after the sutures were removed on March 22. Patient was seen in the office by Dr. Abreu and had a knee aspiration which returned bloody fluid. Dr. Abrue had no concern for infection. Patient is resting comfortably. Examination of left knee reveals no swelling. Patient has slight erythema around both portal sites No drainage. Patient has pain-free range of motion of left knee. No calf tenderness. Patient is recommended to continue on IV antibiotics for the next 24 hours. Patient will not need to be discharged on IV antibiotics. Can be discharged on by mouth antibiotics. Objective Vital signs: Vital Signs Temp Pulse Resp BP Pulse Ox 03/29/17 17:25 98.5 F 82 13 124/73 95 03/29/17 11:30 98.2 F 94 16 125/75 97 03/29/17 07:14 98 F 91 16 139/77 96 03/29/17 04:05 98.0 F 95 16 124/78 96 03/28/17 23:57 97.9 F 84 15 130/72 98 Intake and Output 03/29/17 03/29/17 03/29/17 07:59 15:59 23:59 Intake Total 634 / 634 1100 / 1100 Output Total 200 / 200 1300 / 1300 600 / 600 Balance 434 / 434 -200 / -200 -600 / -600 Intake: IV Fluids 634 / 634 1100 / 1100 0.9 % Sodium Chloride 1, 534 / 534 1000 / 1000 000 ML @ 80 mls/hr IVC . [id number] ADOLFO Rx#: [id number] Tazicef 2,000 mg In 100 / 100 100 / 100 Dextrose 5% (Minibag+) 100 ML 100 ML @ 200 mls/ hr IVPB Q8HR ADOLFO Rx#: [id number] Oral 0 / 0 Output: Urine 200 / 200 1300 / 1300 600 / 600 Other: Weight 90.775 kg Blood Glucose* 101 105 Patient Weight 03/29/17 23:59 Weight 90.775 kg - Labs CBC & BMP: 03/29/17 06:28 07/19/17 06:28 Labs: Abnormal lab results RBC 3.81 M/mcL (3.82-4.97) L 03/29/17 06:28 Hgb 10.8 g/dL (11.5-15.4) L D 03/29/17 06:28 Hct 31.8 % (35.3-44.9) L 03/29/17 06:28 POC Glucose 101 (58-89) H 03/29/17 05:22 Calcium 8.3 mg/dL (8.6-10.8) L 03/29/17 06:28 Urine Clarity Cloudy (Clear) A 03/28/17 19:38 Ur Leukocyte Esterase Moderate (Negative) H 03/28/17 19:38 Urine Microscopic RBC 5-15 per hpf (0-3) H 03/28/17 19:38 Urine Microscopic WBC 15-30 per hpf (0-3) H 03/28/17 19:38 Ur Squamous Epith Cells Many per lpf (None-Few) H 03/28/17 19:38 Ur Culture Indicated? YES (NO) A 03/28/17 19:38 Consult Discharge Plan - Plan Referrals: Wade Saldaña DO [Primary Care Provider] -
[2017-03-29] MEDS: Divalproex (24 HR) 500 MG TABLET PO SCH (20:45)
[2017-03-30] MEDS: *HR* HYDROcodone/Acet 5/325 mg TABLET PO PRN ×3 (00:32→14:20)
[2017-03-30] MEDS: Ketorolac 30 MG/ML VIAL IVP PRN ×2 (04:05→10:23)
[2017-03-30] MEDS: 0.9 % Sodium Chloride 1,000 ML IVC SCH ×2 (04:06→14:24)
[2017-03-30 04:56] LABS: Hematocrit 30.3 % (35.3-44.9); Hemoglobin 10.4 g/dL (11.5-15.4); Mean Corpuscular HGB Conc 34.3 g/dL (31.6-35.5); Mean Corpuscular Hemoglobin 29.1 pg (28.0-33.3); Mean Corpuscular Volume 84.6 fL (83.0-100.0); Mean Platelet Volume 12.2 fL (9.4-12.4); Platelet Count 145 K/mcL (140-400); Red Blood Count 3.58 M/mcL (3.82-4.97); Red Cell Distribution Width 13.4 % (11.5-14.5)
[2017-03-30 05:05] LABS: BUN/Creatinine Ratio 11 (6-26); Blood Urea Nitrogen 8 mg/dL (7-20); Calcium 8.4 mg/dL (8.6-10.8); Carbon Dioxide 25 mEq/L (19-29); Chloride 106 mEq/L (98-109); Glucose 99 mg/dL (70-99); Osmolality,Calculated 278 (280-300); Potassium 3.9 mEq/L (3.5-4.5); Sodium 135 mEq/L (136-145); eGFR For African Americans > 60 (> 60); eGFR For Non-African Americans > 60 (> 60)
[2017-03-30] MEDS: *HR* Heparin 5,000 UNIT/ML VIAL SQ SCH ×2 (06:16→14:23)
--- NOTE | 2017-03-30 06:23 | Orthopedics Progress Note ---
Date of Encounter: 03/30/17 Time of Encounter: 06:21 Subjective Interval history: Patient seen again this morning knee with no new swelling or erythema. Patient still with pain-free range of motion. Still has erythema and swelling more on the anterolateral portal. Recommendation receive p.m. IV antibiotic discharge home on by mouth antibiotics and has a follow-up appointment in our office Monday. Very low suspicion of intra-articular process do not see the need for IV antibiotics on discharge. Objective Vital signs: Vital Signs Temp Pulse Resp BP Pulse Ox 03/30/17 04:16 98.8 F 72 16 127/79 97 03/30/17 01:06 98.5 F 77 15 143/81 96 03/29/17 20:25 98.4 F 85 17 122/78 94 03/29/17 17:25 98.5 F 82 13 124/73 95 03/29/17 11:30 98.2 F 94 16 125/75 97 03/29/17 07:14 98 F 91 16 139/77 96 Intake and Output 03/29/17 03/29/17 03/30/17 15:59 23:59 07:59 Intake Total 1100 / 1100 250 / 250 950 / 950 Output Total 1300 / 1300 600 / 600 800 / 800 Balance -200 / -200 -350 / -350 150 / 150 Intake: IV Fluids 1100 / 1100 250 / 250 950 / 950 0.9 % Sodium Chloride 1, 1000 / 1000 950 / 950 000 ML @ 80 mls/hr IVC . [id number] [facility]OLFO Rx#: [id number] Vancocin 1,250 MG In 250 / 250 Dextrose 5% 250 ML @ 166. 67 mls/hr IVPB Q12H ADOLFO Rx#:[id number] Tazicef 2,000 mg In 100 / 100 Dextrose 5% (Minibag+) 100 ML 100 ML @ 200 mls/ hr IVPB Q8HR ADOLFO Rx#: [id number] Oral 0 / 0 0 / 0 Output: Urine 1300 / 1300 600 / 600 800 / 800 Other: Weight 91.2 kg Blood Glucose* 105 Patient Weight 03/30/17 23:59 Weight 91.2 kg - Labs CBC & BMP: 03/30/17 03:57 03/30/17 03:57 Labs: Abnormal lab results RBC 3.58 M/mcL (3.82-4.97) L 03/30/17 03:57 Hgb 10.4 g/dL (11.5-15.4) L 03/30/17 03:57 Hct 30.3 % (35.3-44.9) L 03/30/17 03:57 Sodium 135 mEq/L (136-145) L 03/30/17 03:57 POC Glucose 105 (58-89) H 03/29/17 17:22 Calculated Osmolality 278 (280-300) L 03/30/17 03:57 Calcium 8.4 mg/dL (8.6-10.8) L 03/30/17 03:57 Urine Clarity Cloudy (Clear) A 03/28/17 19:38 Ur Leukocyte Esterase Moderate (Negative) H 03/28/17 19:38 Urine Microscopic RBC 5-15 per hpf (0-3) H 03/28/17 19:38 Urine Microscopic WBC 15-30 per hpf (0-3) H 03/28/17 19:38 Ur Squamous Epith Cells Many per lpf (None-Few) H 03/28/17 19:38 Ur Culture Indicated? YES (NO) A 03/28/17 19:38 Consult Discharge Plan - Plan Referrals: Wade Saldaña, [Primary Care Provider] -
[2017-03-30 07:28] VITALS: BP 126/74
[2017-03-30] MEDS: BuPROPion XL (24 HR) 150 MG TABLET PO SCH (08:34)
[2017-03-30] MEDS: Vancomycin 1,250 MG in D5% in Water 250 ML IVPB SCH (08:34)
[2017-03-30] MEDS: Lisinopril 20 MG TABLET PO SCH (08:34)
[2017-03-30] MEDS: FLUoxetine 20 MG CAPSULE PO SCH (08:34)
[2017-03-30] MEDS: tiZANidine 4 MG TABLET PO PRN (08:43)
[2017-03-30] MEDS: hydrOXYzine pamoate 25 MG CAPSULE PO PRN ×2 (08:43→14:21)
--- NOTE | 2017-03-30 11:28 | Internal Med Progress Note ---
Date of Encounter: 03/30/17 Time of Encounter: 11:21 - Assessment and plan (1) Cellulitis Current Visit: Yes Status: Acute Assessment and plan: - Acute cellulitis of left lower extremity. Doubt septic arthritis - Will continue IV vancomycin for an additional day, total 3 days and send home on PO antibiotic per ortho. Likely doxycycline. - Has follow up appointment with ortho on monday. - Failed outpatient bactrim before presentation. Qualifiers: Site of cellulitis: extremity Site of cellulitis of extremity: lower extremity Laterality: left Qualified Code(s): L03.116 - Cellulitis of left lower limb (2) Essential hypertension Current Visit: Yes Status: Chronic Assessment and plan: Well controlled at 127/79 - Continue home meds (3) GERD (gastroesophageal reflux disease) Current Visit: Yes Status: Chronic Assessment and plan: - Stable - Continue home prilosec. Qualifiers: Esophagitis presence: without esophagitis Qualified Code(s): K21.9 - Gastro -esophageal reflux disease without esophagitis (4) Migraine Current Visit: Yes Status: Acute Assessment and plan: Hx of chronic migraines, acute episode - reports good relief with toradol 30 mg q6 PRN pain Qualifiers: Migraine type: without aura Status migrainosus presence: without status migrainosus Intractability: not intractable Qualified Code(s): G43.009 - Migraine without aura, not intractable, without status migrainosus (5) DVT prophylaxis Current Visit: Yes Status: Acute Assessment and plan: - heparin 5000 units - Time Spent With Patient 25 - 35 minutes - Subjective Interval history: Ms. Man was seen and examined at bedside this afternoon. She reports that her left knee and swelling, erythema, pain has improved since yesterday. She continues to deny any symptoms of fever, chills, chest pain, shortness of breath or cough. Her only complaints this morning were anxiety with lack of sleep, headache. She states that she was seen the orthopedic surgeon this morning and they discussed the plan of 1 more day of IV vancomycin and then sending her home on by mouth antibiotics and she is agreeable. She has a follow -up appointment with the orthopedic on Monday. - Constitutional Vitals: Temp Pulse Resp BP Pulse Ox 98.3 F 79 16 126/74 95 03/30/17 07:24 03/30/17 07:24 03/30/17 07:24 03/30/17 07:24 03/30/17 07:24 General appearance: Present: A&O X 3, pleasant, no acute distress, answers questions appropriately Exam: Gen.: Vitals noted. No acute distress. AAOx3 HEENT: PERRL/EOMI, oropharynx clear, Normocephalic, atraumatic Neck: Supple. No adenopathy. Cardiac: RRR, no murmur, +S1/S2 Pulmonary: CTA bilaterally, no wheezes, rales or rhonchi, equal chest expansion Abdomen: soft, nontender, BS noted, no guarding Back: Nontender throughout. MSK: ROM intact, no joint swelling noted Extremities: Left lower extremity with improved erythema, swelling localized the joint. 2 surgical incisions, 1 with surrounding erythema. no BLE edema, nontender calf, no cyanosis or clubbing Neuro: A&Ox3, moves all extremities, no focal deficits Psych: Appropriate mood and behavior Internal Medicine: Result - Labs CBC & Chem 7: 03/30/17 03:57 03/30/17 03:57 Labs: Short CBC 03/30/17 Range/Units 03:57 WBC 5.9 (4.3-11.1) K/mcL Hgb 10.4 L (11.5-15.4) g/dL Hct 30.3 L (35.3-44.9) % Plt Count 145 (140-400) K/mcL [facility] 03/30/17 03:57 Sodium 135 L Potassium 3.9 Chloride 106 Carbon Dioxide 25 BUN 8 Creatinine 0.71 Glucose 99 Calcium 8.4 L - ABG Interpretation ABG results: PT/INR, D-dimer PT 10.8 Seconds (9.4-12.1) 03/28/17 18:29 Consult Discharge Plan - Plan Referrals: Wade Saldaña DO [Primary Care Provider] -
[2017-03-30] MEDS ORDERED: levoFLOXacin 750 MG TABLET PO ONE (14:17)
[2017-03-30] MEDS ORDERED: Doxycycline 100 MG in 0.9 % Sodium Chloride Mini Bag 100 ML IVPB SCH ×2 (14:19→18:00)
--- NOTE | 2017-03-30 14:25 | Event Note ---
Date of Encounter: 03/30/17 Time of Encounter: 14:00 Patient seen and examined at bedside. Left knee clinically improved. Vancomycin antibiotic discussed with patient. Discussed switching to oral antibiotics upon discharge. Patient agreeable. Patient to keep follow up appt with [facility] on Tuesday 04/03 - a member of the surgical team will see her at this appt. Patient verbalized understanding. S/w Hospitalist team who is on board with selection of Doxycycline antibiotic - will forego addition of Levofloxacin for now - patient requesting [facility] pharmacy - will send for patient. Okay to discharge from orthopedic standpoint. Will follow outpatient - patient aware to reach out to [facility] with any concerns or issues regarding her operative extremity.
--- NOTE | 2017-03-30 14:31 | Discharge Summary ---
<Agustin Garcia - Last Filed: 03/30/17 14:29> Date of Encounter: 03/30/17 Time of Encounter: 14:29 - Discharge Diagnosis (1) Cellulitis Priority: Primary Status: Acute Comments: After arthroscopy Qualifiers: Site of cellulitis: extremity Site of cellulitis of extremity: lower extremity Laterality: left Qualified Code(s): L03.116 - Cellulitis of left lower limb (2) Essential hypertension Priority: Secondary Status: Chronic (3) GERD (gastroesophageal reflux disease) Priority: Secondary Status: Chronic Qualifiers: Esophagitis presence: without esophagitis Qualified Code(s): K21.9 - Gastro -esophageal reflux disease without esophagitis (4) Migraine Priority: Secondary Status: Acute Qualifiers: Migraine type: without aura Status migrainosus presence: without status migrainosus Intractability: not intractable Qualified Code(s): G43.009 - Migraine without aura, not intractable, without status migrainosus (5) DVT prophylaxis Priority: Secondary Status: Acute - Discharge Medications Prescriptions: Doxycycline Hyclate 100 mg PO Q12HR #14 tablet Levofloxacin [Levaquin] 750 mg PO DAILY #5 tablet Home Medications: Bupropion HCl [Wellbutrin Xl] 300 mg PO DAILY 03/15/17 [History] Divalproex (24 HR) [Depakote ER (24 HR)] 1,000 mg PO HS 03/15/17 [History] Estrogens, Conjugated [Premarin] 0.9 mg PO DAILY 03/15/17 [History] FLUoxetine HCl [Fluoxetine HCl] 40 mg PO BID 03/15/17 [History] HYDROcodone/Acet 5/325 mg [[place] 5-325 mg] 1 tab PO Q6H PRN 03/15/17 [History] Lansoprazole [Prevacid] 30 mg PO DAILY 03/15/17 [History] Lisinopril [Zestril] 20 mg PO DAILY 03/15/17 [History] Tizanidine HCl 4 mg PO Q8H PRN 03/15/17 [History] hydrOXYzine pamoate [Hydroxyzine Pamoate] 25 mg PO QID PRN 03/15/17 [History] Butalb/Acetaminophen/Caffeine [Fioricet 50-300-40 mg Capsule] 1 each PO Q4-6H PRN 03/28/17 [History] SUMAtriptan succinate [Imitrex] 50 mg PO Q2H PRN MDD 100 mg 03/28/17 [History] Sulfamethoxazole/Trimeth DS [Bactrim Ds] 1 each PO BID 03/28/17 [History] Doxycycline Hyclate 100 mg PO Q12HR #14 tablet 03/30/17 [Rx] Levofloxacin [Levaquin] 750 mg PO DAILY #5 tablet 03/30/17 [Rx] Allergies/Adverse Reactions: Allergies morphine Adverse Reaction (Verified 03/15/17 10:25) Vomiting Date of admission: 03/28/17 22:51 Primary care physician: Wade Saldaña DO Discharging clinician: Agustin Garcia Anticipated date of discharge: 03/30/17 - Patient Status Disposition: Home, Self-Care Condition: Good Functional capacity at discharge: independent ambulation Overall status at discharge: patient is progressing back to baseline - Discharge Instructions Follow Up With: Jagdish Abreu DO [Partnered Physician] - 04/03/17 9:10 am Additional Instructions: Please follow-up with your orthopedic surgeon with your appointment as scheduled. And please complete your antibiotic prescriptions to completion. Hospital course: Ms. Man is a 46 year old female presents to the emergency room with complaint of left lower leg swelling, erythema, pain. She reports that she recently had an arthroscopy of the knee for a suspected torn meniscus approximately 1 week ago and reports that the scope was negative for tear. She states that she is unable to bear weight on this leg, and she also admits to fevers, chills with highest temperature recorded of 100 degrees. He states the pain is exacerbated with movement, palpation. Is not reporting any drainage from the incisional wounds. She was seen by her orthopedic surgeon, Dr. Abreu on Monday, where she is was prescribed Bactrim and ibuprofen however she states that the erythema and swelling have continued to her since that time being compliant on her medications. She initially presented to urgent care, where a lower leg ultrasound was done to rule out DVT which was negative. On presentation to the ER, wishes vital signs were significant for a temperature 99 degrees, but the rest within normal limits. Lab values were significant only for a mild hyponatremia at 134. Chest x-ray done in emergency room revealed no acute process. Patient was started on IV vancomycin and Ceftazidime again admitted to the medicine service for acute cellulitis of left lower leg. During the course of hospital stay, she remained afebrile and was continued on IV vancomycin and ceftazidime was discontinued to unlikelihood of pseudomonal infection. ortho was consulted and determined that the infection was not likely to be a septic arthritis. Recommended total 2 days of IV vancomycin with continuation of oral antibiotics upon discharge. Vital Signs remained within normal limits during hospital stay, patient did not develop a white count. Patient was instructed to complete course of antibiotics, to follow up with her orthopedic surgeon with a scheduled appointment on Monday. She will be discharged home in stable medical condition. - Time Spent with Patient Total time spent providing and/or coordinating discharge services: 20 minutes - Constitutional Vitals: Temp Pulse Resp BP Pulse Ox 98.3 F 79 16 126/74 95 03/30/17 07:24 03/30/17 07:24 03/30/17 07:24 03/30/17 07:24 03/30/17 07:24 General appearance: Present: A&O X 3, pleasant, no acute distress, answers questions appropriately Exam: Gen.: Vitals noted. No acute distress. AAOx3 HEENT: PERRL/EOMI, oropharynx clear, Normocephalic, atraumatic Neck: Supple. No adenopathy. Cardiac: RRR, no murmur, +S1/S2 Pulmonary: CTA bilaterally, no wheezes, rales or rhonchi, equal chest expansion Abdomen: soft, nontender, BS noted, no guarding Back: Nontender throughout. MSK: ROM intact, no joint swelling noted Extremities: Left lower extremity with 2 incisional lesions. Mild erythema, swelling around lower lateral incision, much improved since admission. no BLE edema, nontender calf, no cyanosis or clubbing Neuro: A&Ox3, moves all extremities, no focal deficits Psych: Appropriate mood and behavior <Ace Rogers - Last Filed: 03/30/17 15:05> Date of Encounter: 03/30/17 Date of admission: 03/28/17 22:51 Primary care physician: Wade Saldaña DO Hospital course: Ms. Man is a 46 year old female - Time Spent with Patient Total time spent providing and/or coordinating discharge services: - Constitutional Vitals: Temp Pulse Resp BP Pulse Ox 98.3 F 79 16 126/74 95 03/30/17 07:24 03/30/17 07:24 03/30/17 07:24 03/30/17 07:24 03/30/17 07:24 - Attending Attestation left lower extremitie cellulitis, no evidence of septic arthritis discontinue IV vanc and send the patient on doxy and levaquin ( per orthopedic surgery request) follow up with Orthopedic surgery within 7 days Correction : time spent on this discharge 40 min I examined this patient and my medical decision-making was reviewed with the Resident Physician. I agree with the documented findings, disposition and treatment plan as described except to the extent set forth below.
[2017-03-30] MEDS ORDERED: Aminoglycoside Consult 1 EACH MC ONE (17:20)
== END 2017-03-30 17:21 | disposition home or self-care (01) | DRG 603 ==
LOC: EMEROO 17:25 → 3ANU 17:25 → SUATTDRO 22:51
PROVIDERS: ADMIT Family Medicine; ATTEND Internal Medicine

== ENCOUNTER 2021-10-22 18:43 | Inpatient (IN) ==
[2021-10-22 19:47] LABS: Bacteria,Urine Few per hpf (None-Few); Basophils # 0.1 K/mcL (0.0-0.2); Basophils % 0.8 %; Bilirubin,Urine Negative (Negative); Blood,Urine Negative (Negative); Clarity,Urine Clear (Clear); Color,Urine Colorless (Yellow); Eosinophils # 0.3 K/mcL (0.0-0.6); Eosinophils % 2.5 %; Glucose,Urine (UA) Normal (Normal); Hematocrit 41.9 % (35.3-44.9); Hemoglobin 14.2 g/dL (11.5-15.4); Immature Granulocytes % 1.3 % (0-4); Ketones,Urine Negative (Negative); Leukocyte Esterase,Urine Trace (Negative); Lymphocytes # 4.8 K/mcL (0.6-4.6); Lymphocytes % 37.8 %; Mean Corpuscular HGB Conc 33.9 g/dL (31.6-35.5); Mean Corpuscular Hemoglobin 27.8 pg (28.0-33.3); Mean Corpuscular Volume 82.2 fL (83.0-100.0); Mean Platelet Volume 11.6 fL (9.4-12.4); Monocytes # 0.8 K/mcL (0.0-1.3); Monocytes % 6.2 %; Neutrophils # 6.5 K/mcL (1.6-8.9); Nitrite,Urine Negative (Negative); Platelet Count 205 K/mcL (140-400); Protein,Urine Negative (Neg-Trace); RBC,Urine 50-100 per hpf (0-3); Red Cell Distribution Width 13.2 % (11.5-14.5); Segmented Neutrophils % 51.4 %; Specific Gravity,Urine 1.005 (1.010-1.025); Squamous Epithelial Cell,Urine Few per hpf (None-Few); Urobilinogen,Urine Normal (Normal); White Blood Count 12.6 K/mcL (4.3-11.1)
[2021-10-22 20:02] LABS: Estimated Average Glucose 108 mg/dl; Hemoglobin A1C 5.4 %
[2021-10-22 20:03] LABS: Acetaminophen < 10 mcg/mL (10-20); BUN/Creatinine Ratio 9 (6-26); Blood Urea Nitrogen 7 mg/dL (6-20); Calcium 9.4 mg/dL (8.6-10.3); Carbon Dioxide 23 mEq/L (23-29); Chloride 104 mEq/L (98-107); Cholesterol 284 mg/dL (< 200); Ethanol < 10 mg/dL (Less than 10); Glucose 137 mg/dL (70-105); HDL Cholesterol 47 mg/dL (40-59); Osmolality,Calculated 282 (280-300); Potassium 3.4 mEq/L (3.5-5.1); Salicylate < 2.5 mg/dL (15.0-30.0); Sodium 136 mEq/L (136-145); Triglycerides 428 mg/dL (< 150); eGFR For African Americans > 60 (> 60); eGFR For Non-African Americans > 60 (> 60)
[2021-10-22 20:20] LABS: Amphetamine Screen,Urine Negative ng/mL (Cutoff=1000); Barbiturate Screen,Urine Positive ng/mL (Cutoff=200); Benzodiazepines Screen,Urine Negative ng/mL (Cutoff=200); Cannabinoid Screen,Urine Negative ng/mL (Cutoff = 50); Cocaine Screen,Urine Negative ng/mL (Cutoff= 300); Opiate Screen,Urine Negative ng/mL (Cutoff=300); Phencyclidine Screen,Urine Negative ng/mL (Cutoff=25)
[2021-10-22 21:39] LABS: Influenza A PCR Negative (Negative); Influenza B PCR Negative (Negative); Resp. Syncytial Virus PCR Negative (Negative)
[2021-10-22 21:40] LABS: SARS-CoV-2 by PCR (In House) Negative (Negative)
[2021-10-23] MEDS ORDERED: *HR* LORazepam 2 MG/ML VIAL IM PRN (00:12)
[2021-10-23] MEDS ORDERED: hydrOXYzine pamoate 25 MG CAPSULE PO PRN (00:12)
[2021-10-23] MEDS ORDERED: *HR* LORazepam 1 MG TABLET PO PRN (00:12)
[2021-10-23] MEDS ORDERED: Haloperidol Lactate 5 MG/ML VIAL IM PRN (00:12)
[2021-10-23] MEDS ORDERED: haloperidoL 5 MG TABLET PO PRN (00:12)
[2021-10-23] MEDS ORDERED: traZODone 50 MG TABLET PO PRN (00:12)
[2021-10-23] MEDS ORDERED: FLUoxetine 20 MG CAPSULE PO SCH (09:00)
[2021-10-23] MEDS: lisinopriL 20 MG TABLET PO SCH (09:02)
[2021-10-23] MEDS: tiZANidine 4 MG TABLET PO SCH ×2 (09:03→20:39)
[2021-10-23] MEDS ORDERED: Mag Hydrox/Al Hydrox/Simeth 30 ML UDC PO PRN (12:54)
[2021-10-23] MEDS: Nicotine 14 MG PATCH.TD24 TD SCH (14:28)
[2021-10-23] MEDS: Fluticasone Propionate Nasal 50 MCG/SPRAY BOTTLE NS PRN (14:29)
[2021-10-23] MEDS: Ibuprofen 600 MG TABLET PO PRN (18:27)
[2021-10-23] MEDS: Acetaminophen/Butalbital/CaffeineTABLET PO PRN (18:28)
[2021-10-23] MEDS: traZODone 50 MG TABLET PO SCH (20:39)
[2021-10-23] MEDS: hydrOXYzine pamoate 25 MG CAPSULE PO PRN (20:40)
[2021-10-23] MEDS ORDERED: MOM Conc 10 ML UD.LIQ PO PRN (21:00)
[2021-10-24] MEDS: Nicotine 14 MG PATCH.TD24 TD SCH (08:16)
[2021-10-24] MEDS: tiZANidine 4 MG TABLET PO SCH ×2 (08:17→22:00)
[2021-10-24] MEDS: FLUoxetine HCl 10 MG CAPSULE PO SCH (08:17)
[2021-10-24] MEDS: lisinopriL 20 MG TABLET PO SCH (08:28)
[2021-10-24] MEDS ORDERED: FLUoxetine HCl Oral Soln 20 MG/5 ML UDC PO SCH (09:00)
[2021-10-24] MEDS: hydrOXYzine pamoate 25 MG CAPSULE PO PRN (18:37)
[2021-10-24] MEDS: traZODone 50 MG TABLET PO SCH (22:01)
[2021-10-25] MEDS: FLUoxetine HCl 10 MG CAPSULE PO SCH (08:26)
[2021-10-25] MEDS: tiZANidine 4 MG TABLET PO SCH ×2 (08:26→21:42)
[2021-10-25] MEDS: lisinopriL 20 MG TABLET PO SCH (08:27)
[2021-10-25] MEDS: Nicotine 14 MG PATCH.TD24 TD SCH (08:27)
[2021-10-25] MEDS: hydrOXYzine pamoate 25 MG CAPSULE PO PRN ×2 (12:37→21:47)
[2021-10-25] MEDS: Fluticasone Propionate Nasal 50 MCG/SPRAY BOTTLE NS PRN (12:38)
[2021-10-25] MEDS: traZODone 50 MG TABLET PO SCH (21:42)
[2021-10-26] MEDS: lisinopriL 20 MG TABLET PO SCH (08:54)
[2021-10-26] MEDS: tiZANidine 4 MG TABLET PO SCH ×2 (08:54→21:24)
[2021-10-26] MEDS: Nicotine 14 MG PATCH.TD24 TD SCH (08:55)
[2021-10-26] MEDS: hydrOXYzine pamoate 25 MG CAPSULE PO PRN ×2 (11:00→21:23)
[2021-10-26] MEDS: Fluticasone Propionate Nasal 50 MCG/SPRAY BOTTLE NS PRN (12:38)
[2021-10-26] MEDS: Ibuprofen 600 MG TABLET PO PRN (21:23)
[2021-10-26] MEDS: traZODone 50 MG TABLET PO SCH (21:24)
[2021-10-26] MEDS: Acetaminophen/Butalbital/CaffeineTABLET PO PRN (21:28)
[2021-10-27] MEDS: tiZANidine 4 MG TABLET PO SCH ×2 (08:40→21:34)
[2021-10-27] MEDS: Nicotine 14 MG PATCH.TD24 TD SCH (08:40)
[2021-10-27] MEDS: lisinopriL 20 MG TABLET PO SCH (08:40)
[2021-10-27] MEDS: hydrOXYzine pamoate 25 MG CAPSULE PO PRN ×2 (11:15→21:34)
[2021-10-27] MEDS: Ibuprofen 600 MG TABLET PO PRN ×2 (13:55→21:34)
[2021-10-27] MEDS: Acetaminophen/Butalbital/CaffeineTABLET PO PRN (13:56)
[2021-10-27] MEDS: traZODone 50 MG TABLET PO SCH (21:34)
[2021-10-28 09:14] VITALS: BP 109/65; PULSE 87; TEMP 97.8; O2SAT 98
[2021-10-28] MEDS: Nicotine 14 MG PATCH.TD24 TD SCH (09:28)
[2021-10-28] MEDS: tiZANidine 4 MG TABLET PO SCH (09:29)
[2021-10-28] MEDS: lisinopriL 20 MG TABLET PO SCH (09:30)
== END 2021-10-28 10:15 | disposition home or self-care (01) | DRG 751 ==
LOC: EMEROOARM 18:43 → 1ANU 10-23 00:16
PROVIDERS: ADMIT Psychiatry & Neurology Psychiatry; ATTEND Psychiatry & Neurology Psychiatry